=== PATIENT | female | born 1970 ===

== ENCOUNTER 2017-01-14 07:38 | Observation (INO) | payer BC, OTHER ==
[2017-01-08 11:29] VITALS: BMI 24.4
[2017-01-14] MEDS ORDERED: Propofol 10 mg/ml Inj (20 ML) ONE (08:57)
[2017-01-14] MEDS ORDERED: Midazolam 2 MG/2 ML VIAL ONE (08:57)
[2017-01-14] MEDS ORDERED: Rocuronium 10 mg/ml (5 ml) ONE (09:17)
[2017-01-14] MEDS ORDERED: Bupivacaine 0.25%-Epinephrine 1:200,000 (30 ml) Inj ONE (10:11)
[2017-01-14] MEDS ORDERED: ePHEDrine 50 mg/ml Inj ONE (10:32)
[2017-01-14] MEDS ORDERED: Lactated Ringer's 1,000 ML IV ONE ×2 (11:00)
[2017-01-14] MEDS ORDERED: Dexamethasone 4 mg/1 ml ONE (11:10)
[2017-01-14] MEDS ORDERED: Neostigmine Methylsulfate 3mg/3ml Syringe IV ONE (11:15)
[2017-01-14] MEDS ORDERED: Bupivacaine 0.25%-Epinephrine 1:200,000 (30 ml) Inj IJ ONE ×2 (11:19)
[2017-01-14] MEDS ORDERED: HEMOSTATIC MATRIX 10 ML DIS.NEEDLE TOP ONE (12:15)
--- NOTE | 2017-01-14 12:44 | PCM.SURG1 ---
Surgeon's Initial Post Op Note - Surgeon's Notes Surgeon: cameron dawson md Shaft Repairer: brenda austin md Type of Anesthesia: General Endo, Local Pre-Operative Diagnosis: Chronic pelvic pain. Firboid uterus. Prolapse uterus. abnormal uterine bleeding. Urinary incontinence Operative Findings: enlarged uterus, fibroids multiple. prolapse uterus. normal appearing ovaries. intraabdominal adhesions. ureters and bladder anatomy wnl as per cystosocpy. Detailed Operative Report. This is a 46 years old female with enlarged symptomatic fibroid uteurs, prolapse uterrus, Chronic pelvic pain and associated urinary dysfunction including urgency and incontinence. The patient completed an extensive preoperative workup , which included an ultrasound, as well as a pap smear and an endometrial biopsy , chemistry and hematology studies. A decision was finally made to proceed with a total robotic assisted hysterectomy, bilateral salpingectomy, and vaginal vault suspension. All options alternative managements were reviewed including non-surgical and uterine preserving options, but a decision was made by the patient to proceed with surgical management, specifically a hysterectomy. The patient understands the definitive nature of the procedure and understands that she will not be able to have future pregnancies and possible surgical menopause due to an optional removal of her tubes and ovaries. A detailed description of this robotic procedure was given to the patient, all risks and benefits of the surgical modality was reviewed, printed material was also given to the patient regarding robotic surgery. The patient fully understood all the risks and benefits and elected to proceed with this proposed procedure. After proper consent was obtained from the patient was taken to the operating room, proper patient identification was completed. She was placed in dorsal lithotomy position; general anesthesia was induced without difficulty. Her legs were placed in adjustable Yonis stirrups. Careful attention was placed not to over-flex or over-rotate the lower extremities at the hip or the knee joints. She was prepped and draped appropriately for robotic assisted hysterectomy. Saul catheter was inserted under sterile conditions. A V-care uterine manipulator was inserted through the cervix and secured. Attention was turned to the patient's abdomen. Local anesthetic solutions of 0.25% Marcaine with epinephrine were utilized to infiltrate the skin prior to all abdominal skin incisions. A total of 15 mL of 0.25% Marcaine was utilized throughout the procedure. While tenting the abdominal wall, a Veres needle was inserted through the umbilicus and a pneumo-peritoneum was obtained. Approximately at around the umbilical fold, , a small incision was made with a scalpel and a laparoscopic trocar and sleeve were introduced. A robotic camera was inserted through this trocar and an initial survey of the patient's pelvic and abdomen revealed an unlarged bulky fibroid uterus, extensive peritoneal and bowel adhesions. Tubes and ovaries appeared normal but distorted due to adhesions. The patient was placed in Trendelenburg position ready for a da Newton robotic system to be docked. 3 robotic ports were utilized for this procedure. The first robotic port was placed on the patient's right side approximately 5 cm above the right superior iliac crest where a small skin incision approximately 8 mm was made. The second robotic port was in the patient's left side approximately 5 cm superior to the left superior iliac crest. A small incision approximately 1 cm was made in the left upper quadrant and an pizza hut assistant laparoscopic port was inserted. All robotic ports were approximately 8 mm in size, the pizza hut assistant and the camera ports were 1 cm in size. For the pizza hut assistant and camera ports we utilized the Versa-step trocar system. All trocars were inserted under direct visualization. The placement of the trocars was accomplished under careful and meticulous placement under direct visualization. Following the placement of all trocars, the da Newton robotic system was docked in a parallel method without difficulty. The following instruments were utilized for this procedure: the PK sealing device, a monopolar charis and finally a ProGrasp. Meticulous and careful lysis of adhesions and enterolysis was completed utilizing the monopolar charis and PK. Prior to the start of the hysterectomy, both ureters and their courses were visualized following the opening of the retroperitoneum and exploration of the ureters completed to avoid compromise of the ureters, following the exploration of the ureters, both ureters were peristalsing without difficulty. Prior to the start of the hysterectomy, Extensive lysis of adhesions and enterolysis was necessary to complete the procedure. The fallopian tubes were along the mesosalpinx and removed along with the uterus and cervix for pathology analysis. On the patient's right side, the round ligament was identified cauterized and transected. The uteroovario ligament was cauterized and transected. The broad ligament was divided all the way down to the utero cervical junction bladder flap was then created by transecting the visceroperitoneum over the bladder reflection. In a similar fashion, the left round ligament, uteroovarian ligament and broad ligament were cauterized sealed and transected, taken down to the level of the cervical uterine junction. Uterine vessels on both sides were sealed and transected. The Uterosacral ligaments were sealed and transected. The monopolar charis and PK were utilized to complete the colpotomy incision around the care vaginal ring. Excellent hemostasis was noted. The uterus, cervix and fallopian tubes were delivered transvaginal through the colpotomy incision and sent to pathology for permanent analysis. The colpotomy incision was closed with 2-0 v LOC in a continuous fashion with excellent hemostasis. The vaginal vault suspension was achieved by suspending the vaginal cuff to the base of the uterosacral ligaments bilaterally. Prior to the uterosacral ligament suspension, the ureters were once again identified to avoid possible compromise or kinking while suspending the vaginal vault. Meticulous dissection carried out to dissect out the ureters bilaterally to avoid kinking of the ureters with the suspension procedure. A 2-0 Franklin-Zain suture material was utilized to suspend the uterosacral ligaments from the base to the vaginal vault cuff incision including both anterior and posterior aspect of the colpotomy incision. Utilizing a 3-0 Monocryl suture, the peritoneum over the colpotomy incision and uterosacral ligaments was re-approximated in a continuous fashion. The abdomen was throughout irrigated and cleared of all clots and debris. Jermaine-Seal as well as Interceed was applied to the incision sites. Excellent hemostasis was again noted. All robotic and laparoscopic instruments removed under direct visualization. The robotic arms were undocked, and a da Newton robotic system was wheeled away from the patient's bedside. Both pizza hut assistant and camera ports were closed at the fascial layer utilizing 0 Vicryl suture material in interrupted fashion. Pneumo-peritoneum was reduced and all skin incisions were closed utilizing 4-0 Monocryl in a subcutaneous fashion. Dermabond was applied to all incisions. Due to the complexity of this hysterectomy, the extensive of the peritoneal and bowel adhesions and finally the distorted pelvic anatomy, a diagnostic cystoscopy was completed. The Saul catheter was removed; the bladder was distended with approximately 350 cc of normal saline. A 30 cystoscope was introduced and a survey of the bladder anatomy was completed. The base, and the dome of the bladder appeared normal, both ureteral orifices appeared normal and were effluxing urine freely. The urethra appeared normal. A Saul catheter was reinserted. Patient emerged from general anesthesia without difficulty, and was taken to recovery room in stable condition. Prior to incision the patient received antibiotics, prior to closure sponge lap and needle counts were correct x2. Difficult case due to severely distorted anatomy and dense adhesions, the pizza hut assistant surgeon was essential to docking the robot, irrigation and retraction during the procedure. This was an exceptionally difficult surgery and it required prolong duration and high degree of difficulty. Post-Operative Diagnosis: Chronic pelvic pain. Firboid uterus. Prolapse uterus. abnormal uterine bleeding. Urinary incontinence. Pelvic adhesions Operation Performed: Total robotic hysterectomy bilatereal salpingectomy >250g. Uterosacral ligamaent suspenssion. exploration of ureters. Enterolysis. Cystosopy Specimen/Specimens Removed: uterus, cervix, tubes bilateraly Estimated Blood Loss: EBL {In ML}: 20 Blood Products Given: N/A Drains Used: No Drains Post-Op Condition: Good Date of Surgery/Procedure: 01/14/17 Time of Surgery/Procedure: 12:44
[2017-01-14] MEDS ORDERED: HYDROmorphone 0.5 mg/0.5 ml ISec IVP PRN (12:53)
[2017-01-14] MEDS: ceFAZolin 2 GM in Sodium Chloride 0.9% 100 ML IVPB SCH (18:02)
[2017-01-14] MEDS: Oxycodone/Acetaminophen 5/325 mg Tab PO PRN (22:24)
[2017-01-15] MEDS: ceFAZolin 2 GM in Sodium Chloride 0.9% 100 ML IVPB SCH (02:01)
[2017-01-15 06:08] VITALS: O2SAT 97
[2017-01-15 07:40] LABS: BASO % 0.2 % (0.0-2.0); EOS % 0.1 % (0.0-4.0); LYMPH % 18.4 % (20.0-40.0); MEAN CELL VOLUME 87.6 fl (81.0-99.0); MEAN CORPUSCULAR HEMOGLOBIN 29.2 pg (27.0-31.0); MEAN CORPUSCULAR HGB CONC 33.3 g/dL (33.0-37.0); MEAN PLATELET VOLUME 11.1 fl (7.2-11.7); MONO # 0.8 K/uL (0.0-0.8); MONO % 7.6 % (0.0-10.0); NEUT # 7.9 K/uL (1.8-7.0); NEUT % 73.7 % (50.0-75.0); NRBC % 0.1 % (0.0-0.0); RED CELL DISTRIBUTION WIDTH 13.9 % (11.5-14.5); WHITE BLOOD COUNT 10.8 K/uL (4.8-10.8)
[2017-01-15 07:44] LABS: BLOOD UREA NITROGEN 11 mg/dl (7-17); CALCIUM 8.7 mg/dL (8.4-10.2); CARBON DIOXIDE 25 mmol/L (22-30); CHLORIDE 105 mmol/L (98-107); GFR AFRICAN-AMERICAN > 60; GLUCOSE,RANDOM 107 mg/dL (65-105); POTASSIUM 3.7 MMOL/L (3.6-5.0); SODIUM 139 mmol/l (132-148)
[2017-01-15 08:29] VITALS: BP 115/73; PULSE 73; RESP 20; TEMP 98.2
[2017-01-15] MEDS: Oxycodone/Acetaminophen 5/325 mg Tab PO PRN (08:55)
== END 2017-01-15 11:25 | disposition home or self-care (01) ==
LOC: H.OPSURG 07:38 → H.MEDSURG1 13:00
PROVIDERS: ADMIT Obstetrics & Gynecology; ATTEND Obstetrics & Gynecology
DX: D25.9 Leiomyoma of uterus, unspecified (principal); N81.4 Uterovaginal prolapse, unspecified; N93.9 Abnormal uterine and vaginal bleeding, unspecified; R32 Unspecified urinary incontinence; N85.2 Hypertrophy of uterus; R39.15 Urgency of urination; N73.6 Female pelvic peritoneal adhesions (postinfective)
CPT/HCPCS: 36415; 49329; 57425; 58552; 80048; 85025; 88305; 96365; 96375; G0378; J0690; J1100; J1885; J2001; J2250; J2405; J2704; J2710; J3010; J7120